=== PATIENT | male | born 2000 | race Two or more races ===

== ENCOUNTER 2019-01-17 18:53 | Emergency (ER) | payer OTHER ==
--- NOTE | 2019-01-17 19:29 | EDM.PDOC ---
ED HPI GENERAL MEDICAL PROBLEM - General Chief Complaint: Upper Extremity Injury/Pain Stated Complaint: HAND INJURY AT WORK Time Seen by Provider: 01/17/19 19:15 Source of Information: Reports: Patient History Limitations: Reports: No Limitations - History of Present Illness INITIAL COMMENTS - FREE TEXT/NARRATIVE: A 18-year-old male. He was at the work site and was hanging onto a rope that got pulled hard into a wedge and he injured his left hand. He has abrasions over his little finger and his middle finger and his dorsal hand. He also has a bent distal little finger suggesting a fracture. He denies any other acute symptoms. - Related Data Allergies Allergy/AdvReac Type Severity Reaction Status Date / Time No Known Allergies Allergy Verified 01/17/19 19:12 Home Meds: Home Meds Cephalexin [Keflex] 500 mg PO TID #15 capsule 01/17/19 [Rx] Past Medical History - Past Health History Medical/Surgical History: Denies Medical/Surgical History Social & Family History - Tobacco Use Smoking Status *Q: Never Smoker Second Hand Smoke Exposure: No - Caffeine Use Caffeine Use: Reports: Coffee - Recreational Drug Use Recreational Drug Use: No Review of Systems - Review of Systems Review Of Systems: See Below Constitutional: Reports: No Symptoms Eyes: Reports: No Symptoms Ears: Reports: No Symptoms Nose: Reports: No Symptoms Mouth/Throat: Reports: No Symptoms Respiratory: Reports: No Symptoms Cardiovascular: Reports: No Symptoms GI/Abdominal: Reports: No Symptoms Genitourinary: Reports: No Symptoms Musculoskeletal: Reports: Other (As per history of present illness) Skin: Reports: Other (As per history of present illness) Neurological: Reports: No Symptoms Psychiatric: Reports: No Symptoms ED EXAM, GENERAL - Physical Exam Exam: See Below Exam Limited By: No Limitations General Appearance: Alert, WD/WN, No Apparent Distress Eye Exam: Bilateral Eye: Normal Inspection Ears: Normal External Exam Nose: Normal Inspection Throat/Mouth: Normal Inspection, Normal Lips, Normal Voice, No Airway Compromise Head: Normocephalic Neck: Supple Respiratory/Chest: No Respiratory Distress GI/Abdominal: Soft Back Exam: Normal Inspection, Full Range of Motion Extremities: Other (He has no abrasion on the dorsal middle finger, middle phalanx, he has an abrasion on the ring finger dorsal distal phalanx and middle phalanx, and an abrasion to the distal phalanx and DIP joint dorsally on the little finger, there is a laceration on the ulnar side of the distal little finger at the nail area and it looks like the nail is pulled out from the matrix , there is also an abrasion over the fifth MP joint and over the fourth metacarpal dorsally, on the palmar surface he has some bruising to the palmar side of the ring and little fingers but the palm appears to be spaired, his wrist is spared, the right upper extremity has no injuries) Neurological: Alert, Oriented Psychiatric: Normal Affect, Normal Mood Skin Exam: Warm, Dry ED TRAUMA EXTREMITY PROCEDURES - Laceration/Wound Repair Left Hand Lac/Wound Length In cm: 3 Appearance: Subcutaneous, Irregular, Clean Distal NVT: Neuro & Vascular Intact Anesthetic Type: Local Local Anesthesia - Lidocaine (Xylocaine): 1% Plain Local Anesthetic Volume: 5cc Skin Prep: Chlorhexidine (Hibiciens), Providone-Iodine (Betadine) Exploration/Debridement/Repair: Wound Explored, Minimal Debridement Suture Size: other (5-0) # of Sutures: 5 Suture Type: Nylon Drain Placement: No Sterile Dressing Applied: Nurse Tetanus Status Addressed: Yes Complications: No Progress/Comments: Once the little finger was cleaned up it was noted that the laceration on the ulnar side goes into the pad and actually down to the bone but the bone is not fractured. The nail itself was torn out from the nail matrix and the nailbed is for his lacerated as well. When I repaired the laceration I trimmed the backside of the nail completely and put the nail back in place closing the nailbed laceration and then I sutured the nail back to the skin and to the nail bed as well as the laceration around the ulnar side suture. It came together very nicely. Course - Vital Signs Last Recorded V/S: Last Vital Signs Temp 99.1 F 01/17/19 19:08 Pulse 81 01/17/19 19:08 Resp 16 01/17/19 19:08 BP 141/65 H 01/17/19 19:08 Pulse Ox 100 01/17/19 19:08 - Orders/Labs/Meds Orders: Active Orders 24 hr Category Date Time Status Hand Comp Min 3V Lt [CR] Stat Exams 01/17/19 19:29 Taken Meds: Medications Discontinued Medications Generic Name Dose Route Start Last Admin Trade Name Freq PRN Reason Stop Dose Admin Lidocaine HCl 20 ml 01/17/19 20:44 Xylocaine 1% INJECT 01/17/19 20:45 ONETIME ONE Oxycodone HCl 10 mg 01/17/19 19:37 01/17/19 19:42 Oxycodone PO 01/17/19 19:38 10 mg ONETIME ONE Administration - Radiology Interpretation Free Text/Narrative:: X-ray of the left hand did not reveal any acute fractures - Re-Assessments/Exams Free Text/Narrative Re-Assessment/Exam: 01/17/19 21:26 I spoke to the patient as well as his significant other's regarding the x-rays. Once I sutured him and cleaned up the little finger. I gave him instructions on taking Tylenol ibuprofen as needed for pain. To avoid ice tonight but then tomorrow he may use some ice as long as there is a cloth between his skin and the ice. I also suggested that he begin to move those fingers gently slid on get stiff. He is going to follow up with his designated medical provider in 7 days. Dany's note that he received 10 mg of oxycodone in the ER for pain. He is going for a urine drug screen and this might show as being a positive but he has a reason for it to be in his urine. Departure - Departure Time of Disposition: 21:27 Disposition: Home, Self-Care 01 Condition: Good Clinical Impression: Contusion of left hand including fingers Qualifiers: Encounter type: initial encounter Qualified Code(s): S60.222A - Contusion of left hand, initial encounter; S60.00XA - Contusion of unspecified finger without damage to nail, initial encounter Laceration of left little finger w/o foreign body with damage to nail Qualifiers: Encounter type: initial encounter Qualified Code(s): S61.317A - Laceration without foreign body of left little finger with damage to nail, initial encounter Contusion of left ring finger Qualifiers: Encounter type: initial encounter Damage to nail status: without damage Qualified Code(s): S60.042A - Contusion of left ring finger without damage to nail, initial encounter Contusion of left middle finger Qualifiers: Encounter type: initial encounter Damage to nail status: without damage Qualified Code(s): S60.032A - Contusion of left middle finger without damage to nail, initial encounter Abrasion of left ring finger Qualifiers: Encounter type: initial encounter Qualified Code(s): S60.415A - Abrasion of left ring finger, initial encounter Abrasion of left hand Qualifiers: Encounter type: initial encounter Qualified Code(s): S60.512A - Abrasion of left hand, initial encounter Abrasion of left middle finger Qualifiers: Encounter type: initial encounter Qualified Code(s): S60.413A - Abrasion of left middle finger, initial encounter - Discharge Information *PRESCRIPTION DRUG MONITORING PROGRAM REVIEWED*: Not Applicable *COPY OF PRESCRIPTION DRUG MONITORING REPORT IN PATIENT YANA: Not Applicable Prescriptions: Cephalexin [Keflex] 500 mg PO TID #15 capsule Instructions: Abrasion, Sutured Wound Care Referrals: PCP,Unknown [Primary Care Provider] - Forms: ED Department Discharge Additional Instructions: Use Tylenol or ibuprofen as needed for pain, gentle activity with that left hand , watch for infection of the abrasions and the laceration, keep the wounds clean and dry, you may wash the wounds gently with soap and water every day, take the Keflex faithfully for the next 5 days, follow-up with the company designated medical provider in 7 days - My Orders Last 24 Hours: My Active Orders 01/17/19 19:29 Hand Comp Min 3V Lt [CR] Stat - Assessment/Plan Last 24 Hours: My Active Orders 01/17/19 19:29 Hand Comp Min 3V Lt [CR] Stat
[2019-01-17] MEDS ORDERED: oxyCODONE 5 MG Tab PO ONE (19:37)
[2019-01-17] MEDS ORDERED: Lidocaine 1% 20 ML MDV INJECT ONE (20:44)
[2019-01-17] MEDS ORDERED: Cephalexin 500 MG Cap PO ONE (21:21)
[2019-01-17] MEDS ORDERED: Diphtheria,Pertussis(Acell),Tetanus Vaccine 0.5 ML Syringe IM ONE (21:21)
--- NOTE | 2019-01-18 20:18 | CR ---
Left hand: Four views of the left hand were obtained. Comparison: No prior hand exam. Soft tissue swelling is identified. Two radiopacities are projected within the dorsal fourth finger at the level of the DIP joint. No acute fracture, dislocation or other bony abnormality is seen. Impression: 1. Soft tissue foreign bodies as noted above. 2. Soft tissue swelling. 3. Left hand exam is otherwise unremarkable. Diagnostic code #2
== END 2019-01-17 21:43 | disposition home or self-care (01) ==
LOC: JD.ED 18:53
DX: S61.317A Laceration without foreign body of left little finger with damage to nail, initial encounter (principal); S60.042A Contusion of left ring finger without damage to nail, initial encounter; S60.032A Contusion of left middle finger without damage to nail, initial encounter; Z23 Encounter for immunization; W22.8XXA Striking against or struck by other objects, initial encounter; Y99.0 Civilian activity done for income or pay
CPT/HCPCS: 11760; 73130; 90471; 90700; 99283; A9270; J2001; 12002

== ENCOUNTER 2019-03-24 10:18 | Emergency (ER) | payer BC ==
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
[2019-03-24] MEDS ORDERED: Acetaminophen 325 MG Tab PO ONE (10:45)
[2019-03-24] MEDS ORDERED: Ibuprofen 800 MG Tab PO ONE (10:45)
[2019-03-24] MEDS ORDERED: Lidocaine 1% 10 ML MDV INJECT ONE (10:45)
--- NOTE | 2019-03-24 13:40 | CR ---
Right knee: Four views of the right knee were obtained. Comparison: No previous study. Small joint effusion is seen. Medial and lateral joint compartments are maintained in height. No fracture or other bony abnormality is seen. Impression: 1. Small joint effusion. 2. No bony abnormality is seen on right knee exam. Diagnostic code #2
== END 2019-03-24 13:00 | disposition home or self-care (01) ==
LOC: JD.ED 10:18
DX: S83.91XA Sprain of unspecified site of right knee, initial encounter (principal); S40.811A Abrasion of right upper arm, initial encounter; V86.56XA Driver of dirt bike or motor/cross bike injured in nontraffic accident, initial encounter
CPT/HCPCS: 73564; 99283; A9270; J2001; 99282